=== PATIENT | female | born 1985 | race Caucasian/White ===

== ENCOUNTER → 2021-10-02 | Outpatient (CLI) | payer BC ==
[~2021-10-02] MED LIST: ACTIGALL 300MG300 MG PO; LOVENOX 3030 MG/0.3 SQ; PERCOCET 325 MG1 TA2 PO; PRENATAL1 TA7 PO; [UNRECOGNIZED DRUG - CODE] SQ
== END ==
LOC: ZCOL.LAB 09:22
DX: Z01.818 Encounter for other preprocedural examination (principal); N18.5 Chronic kidney disease, stage 5; Z20.822 Contact with and (suspected) exposure to COVID-19

== ENCOUNTER 2023-12-21 10:25 | Inpatient (IN) | payer BC, MEDICARE ==
[~2023-12-21] VITALS: Ht 162.6 cm; Wt 93.6 kg
[2023-12-21 11:01] LABS: COLLECTION METHOD CLEAN CATCH
[2023-12-21 11:54] LABS: URINE APPEARANCE Hazy (CLEAR/HAZY); URINE COLOR Yellow (YELLOW)
[2023-12-21 11:55] LABS: URINE BACTERIA Many /hpf (NONE SEEN); URINE BLOOD 1+ (NEGATIVE); URINE GLUCOSE Negative (NEGATIVE); URINE KETONE 1+ (NEGATIVE); URINE NITRATE Positive (NEGATIVE); URINE PROTEIN(semi-quant) 2+ (NEGATIVE); URINE UROBILINOGEN 0.2 E.U/dL (0.2-1.0)
[2023-12-21 11:55] LABS: HEMATOCRIT 39.2 % (37.0-47.0); HEMOGLOBIN 13.6 g/dl (12.5-16.0); MEAN CELL VOLUME 86 fl (80.0-100.0); MEAN CORPUSCULAR HEMOGLOBIN 30 pg (27-31); MEAN CORPUSCULAR HGB CONC 35 g/dl (33.0-37.0); MEAN PLATELET VOLUME 9.1 fl (7.4-10.4); PLATELET COUNT 283 K/mm3 (130-400); RED BLOOD COUNT 4.55 M/mm3 (4.10-5.30); REDCELL DISTRIBUTION WIDTH-CV 14.3 % (11.5-14.5)
[2023-12-21 11:56] LABS: ALBUMIN 3.1 gm/dL (3.5-5.0); BILIRUBIN,TOTAL 0.7 mg/dL (0.2-1.2); CALCIUM 9.5 mg/dL (8.4-10.2); CREATININE, serum 1.3 mg/dL (0.57-1.11); POTASSIUM 3.5 mmol/L (3.5-4.5); TOTAL PROTEIN 7.1 gm/dL (6.2-8.1)
[2023-12-21] MEDS ORDERED: NS 1,000 ML IV ONE (12:15)
[2023-12-21] MEDS ORDERED: Acetaminophen 500 MG TAB PO ONE (12:15)
[2023-12-21 12:42] LABS: ANISOCYTOSIS 1+; BAND 8 % (0-10); BASOPHIL 1 % (0-2); BURR CELLS 1+; LYMPHOCYTE 2 % (20.0-51.0); OVALOCYTES 1+; PLATELET ESTIMATE NORMAL (NORMAL)
[2023-12-21 12:43] LABS: NEUTROPHILS 75 % (42.0-75.2)
[2023-12-21] MEDS ORDERED: Acetaminophen 500 MG TAB PO PRN (13:00)
[2023-12-21] MEDS ORDERED: Ondansetron 4 MG/2 ML VIAL IV PRN (13:00)
[2023-12-21] MEDS ORDERED: Polyethylene Glycol 3350 17 GM PDS PO PRN (13:00)
[2023-12-21] MEDS ORDERED: PRAVACHOL 20MG20 MG PO (13:42)
[2023-12-21] MEDS ORDERED: PROGRAF 1MG1 MG PO (13:42)
[2023-12-21] MEDS ORDERED: PREDNISONE 5MG5 MG PO (13:43)
[2023-12-21] MEDS ORDERED: ASPIRIN 81M81 MG/TA2 PO (13:43)
[2023-12-21] MEDS ORDERED: NORVASC 5MG5 MG/TAB PO (13:43)
[2023-12-21] MEDS ORDERED: MAGNESIUM200 MG PO (13:44)
[2023-12-21] MEDS ORDERED: FOLIC ACID 11 MG/TA1 PO (13:44)
[2023-12-21] MEDS ORDERED: AZATHIOPRINE100 MG PO (13:45)
[2023-12-21] MEDS ORDERED: MELATONIN5 M1 SL (13:45)
[2023-12-21] MEDS ORDERED: NS 1,000 ML IV SCH (13:45)
[2023-12-21] MEDS ORDERED: ASPIRIN E.C. 8181 MG PO (13:55)
[2023-12-21 15:57] VITALS: BP 106/63; PULSE 76; TEMP 98.3
[2023-12-21 17:02] VITALS: BP_SYST 106
--- NOTE | 2023-12-21 18:25 | NUR ---
Patient admitted to room 350 this afternoon, Admission and med rec completed. She has had reports of a headache, but did take tylenol for. Ivf as ordered. She has been up and voided x1. Patient going to order dinner, family at bedside.
--- NOTE | 2023-12-21 18:58 | NUR ---
Patient not feeling as well this evening. Reports dinner not settling well. Zofran given PRN. No emesis. Tylenol given per her request. Her supportive family at bedside. Bedside report to Yoanna.
--- NOTE | 2023-12-21 19:04 | NUR ---
report received from juan antonio perez. pt resting in bed with family at bedside. call light in reach. all needs met at this time.
[2023-12-21 19:53] VITALS: BP 117/74; PULSE 85; TEMP 98.9
[2023-12-21 21:00] VITALS: BP_SYST 117
[2023-12-21] MEDS ORDERED: Melatonin 3 MG TAB PO SCH (21:00)
[2023-12-21] MEDS ORDERED: TACROLIMUS PO SCH (21:00)
[2023-12-21] MEDS ORDERED: Pravastatin 20 MG TAB PO SCH (21:00)
--- NOTE | 2023-12-21 22:21 | NUR ---
shift assessment complete, see documentation. pt denies pain. pt tolerated hs meds well. pt now resting in bed watching tv. call light in reach. all needs met at this time.
--- NOTE | 2023-12-21 22:27 | NUR ---
pt reporting constant headache that prn tylenol did not relieve. [facility] updated.
[2023-12-21] MEDS ORDERED: Ibuprofen 400 MG TAB PO ONE (23:15)
--- NOTE | 2023-12-21 23:34 | NUR ---
pt reporting increased abd pain. one time dose motrin administered per orders. called [facility]. awaiting call back.
[2023-12-21 23:39] VITALS: BP 124/74; PULSE 96; TEMP 100
[2023-12-22] VITALS (13 sets, daily range): BP systolic 110–129; BP diastolic 70–79; PULSE 66–92; TEMP 98.1–100.7
--- NOTE | 2023-12-22 00:19 | NUR ---
pt continues reporting increased abd pain. called [facility]. awaiting new orders.
[2023-12-22] MEDS ORDERED: Morphine 4 MG/ML VIAL IV ONE (00:30)
[2023-12-22] MEDS ORDERED: Famotidine 20 MG TAB PO ONE (00:30)
--- NOTE | 2023-12-22 00:44 | NUR ---
pt c/o increased abd pain rated 8/10. one time dose morphine 2mg IV and pepcid PO administered per orders. pt reporting nausea as well. prn zofran administered per orders. pt resting in bed. call light in reach. all needs met at this time.
--- NOTE | 2023-12-22 02:18 | NUR ---
pt reported pain relief from prn morphine. pt is diaphoretic. vss. temp has come down from 100.0 to 98.7. pt now resting comfortably in bed. call light in reach. all needs met at this time.
[2023-12-22 07:01] LABS: HEMOGLOBIN 11.7 g/dl (12.5-16.0); MEAN CELL VOLUME 89 fl (80.0-100.0); MEAN CORPUSCULAR HEMOGLOBIN 29 pg (27-31); MEAN CORPUSCULAR HGB CONC 33 g/dl (33.0-37.0); MEAN PLATELET VOLUME 9.4 fl (7.4-10.4); PLATELET COUNT 247 K/mm3 (130-400); REDCELL DISTRIBUTION WIDTH-CV 14.6 % (11.5-14.5)
[2023-12-22 07:14] LABS: HEMATOCRIT 35.5 % (37.0-47.0)
[2023-12-22 07:21] LABS: CALCIUM 8.9 mg/dL (8.4-10.2); CREATININE, serum 1.13 mg/dL (0.57-1.11)
[2023-12-22 08:40] LABS: BAND 3 % (0-10); LYMPHOCYTE 3 % (20.0-51.0); NEUTROPHILS 90 % (42.0-75.2); PLATELET ESTIMATE NORMAL (NORMAL)
[2023-12-22 08:41] LABS: BURR CELLS 2+; OVALOCYTES 1+
[2023-12-22] MEDS ORDERED: Loperamide 2 MG CAP PO PRN (08:45)
[2023-12-22] MEDS ORDERED: Folic Acid 1 MG TAB PO SCH (09:00)
[2023-12-22] MEDS ORDERED: predniSONE 5 MG TAB PO SCH (09:00)
[2023-12-22] MEDS ORDERED: azaTHIOprine 50 MG TAB PO SCH (09:00)
[2023-12-22] MEDS ORDERED: MAG-OX 400400 MG/TAB PO (09:04)
[2023-12-22] MEDS ORDERED: TYLENOL 500MG500 MG PO (09:06)
--- NOTE | 2023-12-22 11:10 | NUR ---
PT RESTING IN BED WITH PAIN 2/10 IN ABDOMEN. PT AMBULATES TO BATHROOM WITH STEADY GAIT TO SHOWER INDEPENDENTLY. LOW GRADE FEVER OF 100.7 THIS AM AND PRN TYLONOL PROVIDED. PT STATES LITTLE TO NO APPETITE WITH SOME NAUSEA. DENIES ANY OTHER PRN MEDICATION AT THIS TIME. WILL CONTINUE TO [facility]TI[facility].
--- NOTE | 2023-12-22 12:15 | NUR ---
Salon Leader Coco and Social Work student Lucila met with pt to discuss discharge planning. Pt reported she lives in [facility] and her best point of contact is her [facility] [phone]. Pt reported her PCP is Dr. Zapien and she gets her medications from [facility] with no difficulties affording them. Pt did not have dpoa and is not interested in doing one at this time. Pt understands that is next of kin and would make decisions if she was unable to. Pt uses no DME and is independent with all ADL. Pt said she is able to get herself to and from appointments and has no concerns at this time. Patient would like to return home at time of discharge. Discharge: Home
--- NOTE | 2023-12-22 18:52 | NUR ---
D: Initial visit: Package Clerk stopped by room on rounds. Pt was resting and content with in the room. A: Pt has no needs right now. Pt and appreciated the visit. P: Package Clerk informed pt that if she needed anything from the grill attendant area to let her nurse know. Package Clerk will follow up as needed.
[2023-12-22] MEDS ORDERED: Acetaminophen 325 MG TAB PO PRN (19:00)
--- NOTE | 2023-12-22 19:45 | NUR ---
report received from roberto carlos perez. pt resting in bed with family at bedside. pt tearful and reporting increased pain. waiting for pharmacy to verify new order for PRN [place]. call light in reach. all needs met at this time.
--- NOTE | 2023-12-22 22:44 | NUR ---
shift assessment complete, see documentation. pt tolerated hs meds well. pt was c/o increased pain at shift change. prn norco administered per orders. pt stated prn provided pain relief. pt now resting in bed. call light in reach. all needs met at this time.
[2023-12-23] VITALS (7 sets, daily range): BP systolic 110–128; BP diastolic 66–86; PULSE 64–81; TEMP 98.4–99.5
--- NOTE | 2023-12-23 06:43 | NUR ---
pt reporting she is starting to have pain and is feeling hot. pt not diaphoretic. temp is 99.4. prn tylenol administered per orders. call light in reach. all needs met at this time.
[2023-12-23 07:01] LABS: HEMOGLOBIN 11.5 g/dl (12.5-16.0); MEAN CELL VOLUME 86 fl (80.0-100.0); MEAN CORPUSCULAR HEMOGLOBIN 30 pg (27-31); MEAN CORPUSCULAR HGB CONC 34 g/dl (33.0-37.0); MEAN PLATELET VOLUME 9.2 fl (7.4-10.4); PLATELET COUNT 259 K/mm3 (130-400); RED BLOOD COUNT 3.89 M/mm3 (4.10-5.30); REDCELL DISTRIBUTION WIDTH-CV 14.6 % (11.5-14.5)
[2023-12-23 07:03] LABS: HEMATOCRIT 33.6 % (37.0-47.0)
[2023-12-23 07:06] LABS: CALCIUM 8.7 mg/dL (8.4-10.2); CREATININE, serum 1.12 mg/dL (0.57-1.11); POTASSIUM 3.4 mmol/L (3.5-4.5)
[2023-12-23 07:40] LABS: BAND 17 % (0-10); BASOPHIL 1 % (0-2); EOSINOPHIL 1 % (0-4); LYMPHOCYTE 9 % (20.0-51.0); NEUTROPHILS 65 % (42.0-75.2); PLATELET ESTIMATE NORMAL (NORMAL)
[2023-12-23] MEDS ORDERED: CIPRO 500MG TA500 MG PO (12:17)
[2023-12-23] MEDS ORDERED: Ciprofloxacin 500 MG TAB PO SCH (12:30)
--- NOTE | 2023-12-23 13:45 | NUR ---
Patient discharging home, I discussed d/c instructions with and significant other, instucted to follow up with PCP as we have scheduled for her, instructed to have lab drawn prior to her follow up appointment, instructed to take CIPRO as prescribed/ script sent to [facility] pharmacy, education provided on medication and discharge diagnosis, I removed her IV from left arm, she denied other questions or concerns, I escorted them to the door
--- NOTE | 2023-12-23 14:23 | NUR ---
Initial visit; Patient and her greeted [employer] and thanked her for coming in and offering encouragement and God's blessings. Patient was receptive to [employer] keeping her in her prayers.
== END 2023-12-23 14:58 | disposition home or self-care (01) | DRG 872 ==
LOC: COL.ER 10:25 → SURG 12:07
PROVIDERS: Physician Assistant; ADMIT Internal Medicine
DX: A41.9 Sepsis, unspecified organism (principal); N39.0 Urinary tract infection, site not specified; Z94.0 Kidney transplant status; D84.9 Immunodeficiency, unspecified; K52.1 Toxic gastroenteritis and colitis; Z16.11 Resistance to penicillins; Z16.29 Resistance to other single specified antibiotic; I10 Essential (primary) hypertension; E78.5 Hyperlipidemia, unspecified; B96.20 Unspecified Escherichia coli [E. coli] as the cause of diseases classified elsewhere; T36.95XA Adverse effect of unspecified systemic antibiotic, initial encounter; Z79.899 Other long term (current) drug therapy; Z23 Encounter for immunization
CPT/HCPCS: J1650; J2270; J2405; J2543; J7030; J7500; J7507; J7512